=== PATIENT | female | born 1975 | race Two or more races ===

== ENCOUNTER 2017-04-01 16:48 | Emergency (ER) | payer OTHER ==
[~2017-04-01] VITALS: Ht 167.6 cm; Wt 101.1 kg
[2017-04-01 19:26] LABS: APPEARANCE CLEAR ((CLEAR)); BILIRUBIN NEGATIVE; BLOOD SMALL; COLOR STRAW ((YELLOW)); GLUCOSE (STRIP) NEGATIVE; KETONES NEGATIVE; LEUKOCYTES NEGATIVE; NITRITE NEGATIVE; PROTEIN (STRIP) NEGATIVE; SPECIFIC GRAVITY 1.008 (1.000-1.030); UROBILINOGEN 0.2 MG/DL (0.2-1.0)
[2017-04-01 19:28] LABS: BACTERIA RARE /HPF; EPITHELIAL CELLS RARE /HPF; MUCUS NONE SEEN /LPF; RED BLOOD CELLS 0-5 /HPF (0-5); UCUL ADDED? NO; WHITE BLOOD CELLS 0-5 /HPF (0-5)
[2017-04-01 20:00] VITALS: BP 184/126
[2017-04-01] MEDS ORDERED: FLEXERIL10 MG PO (20:18)
[2017-04-01] MEDS ORDERED: LIDODERM 5% P1 PATCH TD (20:18)
[2017-04-01] MEDS ORDERED: VOLTAREN 1% GE100 GM TP (20:18)
== END 2017-04-01 20:28 | disposition home or self-care (01) ==
LOC: EME 16:48
PROVIDERS: Nurse Practitioner Family
DX: S16.1XXA Strain of muscle, fascia and tendon at neck level, initial encounter (principal); S46.011A Strain of muscle(s) and tendon(s) of the rotator cuff of right shoulder, initial encounter; X50.0XXA Overexertion from strenuous movement or load, initial encounter; I10 Essential (primary) hypertension; M50.31 Other cervical disc degeneration, high cervical region; J45.909 Unspecified asthma, uncomplicated
CPT/HCPCS: 71046; 72040; 72070; 81003; 99281; 99284; J1885